=== PATIENT | female | born 1955 | race Caucasian/White ===

== ENCOUNTER 2020-10-15 19:45 | Inpatient (IN) ==
--- NOTE | 2020-10-15 20:40 | DR.URIAD ---
HPI Time Seen Time Seen by Provider: 10/15/20 20:35 PCP Primary Care Physician: CHINYERE HPI Comment HPI Comment: pt's diagnosed with COVID, wants regen-cov but not vaccine Complaint Chief Complaint:: CHEST CONGESTION, WEAKNESS, NO APPETITE, DIARRHEA, H/A. Self Treatment fo Chief Complaint: TYLENOL, IVERMECTIN FROM NEICE Reviewed Nurses Notes Reviewed: Yes Source History Provided: Patient Mode of Arrival Mode of Arrival: Ambulatory Timing Onset of Chief Complaint: 10/06/20 Quality Shortness of Breath: Mild PMH PMH Past Medical History: Yes Past Medical History: COPD and Hypertension Past Surgical History: Yes Surgical History: Hysterectomy Family History History of Family Medical Conditions: Yes Family Medical History: Cancer Social History Does patient currently use any type of tobacco product: No Have you used tobacco products in the last 12 months: No Type of Tobacco Use: None Does any household member use tobacco: No Alcohol Use: None Do you use any recreational Drugs:: No Lives With: Spouse Lives Where: Home Infectious screening In the last 2 months have you had wt loss of >10#?: NO Have you had fever, night sweats or hemotysis?: No Have you traveled outside the country in the last 6 months?: No Isolation: Droplet ROS Review of Systems Constitutional: Chills, Malaise and Fatigue Eyes: No Symptoms Reported ENTM: No Symptoms Reported Respiratoy: Non-Productive Cough and Short of Breath Cardiovascular: No Symptoms Reported Gastrointestinal/Abdominal: See HPI and Diarrhea Genitourinary: No Symptoms Reported Neurological: No Symptoms Reported Musculoskeletal: No Symptoms Reported Integumentary: No Symptoms Reported Hematologic/Lymphatic: No Symptoms Reported Endocrine: No Symptoms Reported Psychiatric: No Symptoms Reported All Other Systems: Reviewed and Negative PE Vital Signs Vitals: Temperature 100.0 F Pulse Rate [Left] 84 Pulse Rate 86 Respiratory Rate 18 Blood Pressure [Left Arm] 130/78 Blood Pressure 125/74 O2 Sat by Pulse Oximetry 80 General Limitations: No Limitations General Appearance: Alert and In No Apparent Distress Head Head Exam: Normal Inspection Eyes Eye exam: Normal Appearance ENT ENT Exam: Normal Exam External Ear Exam: Normal External Inspection TM/Canal Exam: Bilateral: Normal Nose Exam: Normal Nose Exam Nasal Speculum Exam: Bilateral: Normal Mouth Exam: Normal Inspection Throat Exam: Normal Inspection Neck Neck Exam: Normal Inspection Chest Chest Inspection: Normal Inspection Respiratory Respiratory Exam: Normal Lung Sounds Bilat Respiratory Exam: Bilateral: Clear to Auscultation Cardiovascular Cardiovascular Exam: Regular Rate and Normal Rhythm Abdominal Exam Abdominal Exam: Normal Inspection, Normal Bowel Sounds and Soft Extremeties Extremities Exam: Normal Inspection Back Back Exam: Normal Inspection Neurologic Neurological Exam: Alert and Oriented X3 Psychiatric Psychiatric Exam: Normal Affect and Normal Mood Skin Skin Exam: Warm, Dry, Intact and Normal Color MDM Differential Diagnosis Differential Diagnosis: Allergic rhinitis, Influenza A, Influenza B, Influenza:H1N1, Otitis media, Peritonsillar abscess, Diptheria pharyngitis, Streptococcal pharyngitis, Viral pharyngitis, Pneumonia, Sinsusitis and URI COURSE Treatment Treatment: viral vs covid, will do test for protocol work-up for regen-cov Reevaluation 1st: Unchanged (pt has sat of 86 on ABG and PO2 of 50, regen-cov not indicated, will admit, start steriods and remdesivir, will admit to [facility]) [facility] Labs Reviewed Laboratory Results Reviewed?: Yes Result Diagrams: 10/15/20 20:47 10/15/20 20:47 Laboratory: WBC 3.5 X10^3/uL (3.6-10.0) L 10/15/20 20:47 RBC 3.64 X10^6/uL (3.5-5.4) 10/15/20 20:47 Hgb 11.3 g/dL (12.0-16.0) L 10/15/20 20:47 Hct 33.7 % (36.0-47.0) L 10/15/20 20:47 MCV 92.5 fL (80.0-100.0) 10/15/20 20:47 MCH 31.1 pg (27.0-34.0) 10/15/20 20:47 MCHC 33.7 g/dL (33.0-35.0) 10/15/20 20:47 RDW 14.5 % (11.6-16.5) 10/15/20 20:47 Plt Count 125 X10^3/uL (150.0-450.0) L 10/15/20 20:47 MPV 8.1 fL (7.4-11.0) 10/15/20 20:47 Neut % (Auto) 75.6 % (42.0-75.0) H 10/15/20 20:47 Lymph % (Auto) 19.9 % (21.0-51.0) L 10/15/20 20:47 [place] % (Auto) 3.9 % (0.0-13.0) 10/15/20 20:47 Eos % (Auto) 0.2 % (0.9-2.9) L 10/15/20 20:47 Baso % (Auto) 0.4 % (0.2-1.0) 10/15/20 20:47 Neut # (Auto) 2.7 x10^3/uL (2.2-4.8) 10/15/20 20:47 Lymph # (Auto) 0.7 X10^3/uL (1.3-2.9) L 10/15/20 20:47 [place] # (Auto) 0.1 x10^3/uL (0.3-0.8) L 10/15/20 20:47 Eos # (Auto) 0.0 x10^3/uL (0.0-0.2) 10/15/20 20:47 Baso # (Auto) 0.0 X10^3/uL (0.0-0.1) 10/15/20 20:47 Absolute Nucleated RBC 0.2 /100WBC 10/15/20 20:47 D-Dimer 0.59 ug/ml (0.0-0.57) H* 10/15/20 20:47 Sample Site Lb 10/15/20 21:29 ABG pH 7.420 (7.35-7.45) 10/15/20 21:29 ABG pCO2 40.0 mmHg (35.0-45.0) 10/15/20 21:29 ABG pO2 50.0 mmHg (80.0-100.0) L 10/15/20 21:29 ABG HCO3 25.9 mmol/L (22-26) 10/15/20 21:29 ABG O2 Saturation 86.0 % (90-100) L 10/15/20 21:29 ABG Base Excess 1.3 mmol/L (-2.0-2.0) 10/15/20 21:29 Ugo Test N/a 10/15/20 21:29 A-a Gradient Not Reportable 10/15/20 21:29 FiO2 21 10/15/20 21:29 Blood Gas Comments Zia well ae 10/15/20 21:29 Sodium 139 mmol/L (136-145) 10/15/20 20:47 Corrected Sodium TNP 10/15/20 20:47 Potassium 3.3 mmol/L (3.5-5.1) L 10/15/20 20:47 Chloride 101 mmol/L (98-107) 10/15/20 20:47 Carbon Dioxide 27.8 mmol/L (21-32) 10/15/20 20:47 BUN 16 mg/dL (7-18) 10/15/20 20:47 Creatinine 1.30 mg/dL (0.55-1.02) H 10/15/20 20:47 Est GFR (MDRD) Af Amer 53 (>60) L 10/15/20 20:47 Est GFR (MDRD) Non-Af 44 (>60) L 10/15/20 20:47 Glucose 97 mg/dL (65-99) 10/15/20 20:47 Calcium 8.4 mg/dL (8.5-10.1) L 10/15/20 20:47 Corrected Calcium TNP 10/15/20 20:47 Ferritin 330 ng/mL (8-252) H 10/15/20 20:47 Total Bilirubin 0.40 mg/dL (0.2-1.0) 10/15/20 20:47 AST 62 Units/L (15-37) H 10/15/20 20:47 ALT 60 Units/L (12-78) 10/15/20 20:47 Alkaline Phosphatase 62 Units/L (46-116) 10/15/20 20:47 C-Reactive Protein 53.60 mg/L (0-3.0) H 10/15/20 20:47 B-Natriuretic Peptide 13.0 pg/mL (0-79) 10/15/20 20:47 Total Protein 7.1 g/dL (6.4-8.2) 10/15/20 20:47 Albumin 3.7 g/dL (3.4-5.0) 10/15/20 20:47 Globulin 3.4 g/dL (2.5-4.5) 10/15/20 20:47 Albumin/Globulin Ratio 1.1 Ratio (1.1-2.1) 10/15/20 20:47 SARS CoV-2 RNA Rapid KRISTIE Positive (NEGATIVE) A 10/15/20 20:40 XRAY XRAY Interpreted by: Radiologist X-ray Results: MPRESSION COPD and hazy opacities within the peripheral mid and lower right lung, which are concerning for early developing pneumonia. Atypical pneumonia including viral etiologies not excluded. Clinical correlation continued PA/lateral radiographic follow-up recommended. Opioid Opioid Risk Tool Total: 0 Total Score Risk Category: Low Risk Copyright: Jd JOHNSON predicting aberrant behaviors Diagnosis Discharge Problem: COPD (chronic obstructive pulmonary disease) with acute bronchitis, COVID-19, Hypoxia Instructions Instructions: Chronic Obstructive Pulmonary Disease Viral Illness, Adult
[2020-10-15 21:21] LABS: BASOPHILS % (AUTO) 0.4 % (0.2-1.0); EOSINOPHILS % (AUTO) 0.2 % (0.9-2.9); HEMATOCRIT 33.7 % (36.0-47.0); HEMOGLOBIN 11.3 g/dL (12.0-16.0); LYMPHOCYTES # (AUTO) 0.7 X10^3/uL (1.3-2.9); LYMPHOCYTES % (AUTO) 19.9 % (21.0-51.0); MEAN CORPUSCULAR HEMOGLOBIN 31.1 pg (27.0-34.0); MEAN CORPUSCULAR HGB CONC 33.7 g/dL (33.0-35.0); MEAN CORPUSCULAR VOLUME 92.5 fL (80.0-100.0); MEAN PLATELET VOLUME 8.1 fL (7.4-11.0); MONOCYTES # (AUTO) 0.1 x10^3/uL (0.3-0.8); MONOCYTES % (AUTO) 3.9 % (0.0-13.0); NEUTROPHILS # (AUTO) 2.7 x10^3/uL (2.2-4.8); NEUTROPHILS % (AUTO) 75.6 % (42.0-75.0); PLATELET COUNT 125 X10^3/uL (150.0-450.0); RED BLOOD COUNT 3.64 X10^6/uL (3.5-5.4); RED CELL DISTRIBUTION WIDTH 14.5 % (11.6-16.5); WHITE BLOOD COUNT 3.5 X10^3/uL (3.6-10.0)
[2020-10-15 21:23] LABS: ALANINE AMINOTRANSFERASE 60 Units/L (12-78); ALBUMIN 3.7 g/dL (3.4-5.0); ALKALINE PHOSPHATASE 62 Units/L (46-116); ASPARTATE AMINO TRANSFERASE 62 Units/L (15-37); BLOOD UREA NITROGEN 16 mg/dL (7-18); CALCIUM 8.4 mg/dL (8.5-10.1); CARBON DIOXIDE 27.8 mmol/L (21-32); CHLORIDE 101 mmol/L (98-107); SODIUM 139 mmol/L (136-145); TOTAL PROTEIN 7.1 g/dL (6.4-8.2); eGFR NON BLACK RACES 44 (>60)
[2020-10-15 21:34] LABS: ABG BASE EXCESS 1.3 mmol/L (-2.0-2.0); ABG HCO3 25.9 mmol/L (22-26)
[2020-10-15] MEDS ORDERED: NS 1000 ML 1,000 ML IV ONE (21:47)
[2020-10-15] MEDS ORDERED: DECADRON INJ IVP ONE (21:47)
--- NOTE | 2020-10-15 21:48 | RAD ---
HISTORYCHEST CONGESTION, WEAKNESS, NO APPETITE, DIARRHEA, H/A. COPD, HTN, HYSTSTUDYCHEST, 1 VIEWCOMPARISONNoneFINDINGSCardiac silhouette is normal in size. Lungs are hyperinflated with flattening of the hemidiaphragms and coarsened interstitial markings, compatible with COPD. There are hazy opacities within the peripheral mid and lower right lung. There is no significant pleural effusion or pneumothorax.IMPRESSIONCOPD and hazy opacities within the peripheral mid and lower right lung, which are concerning for early developing pneumonia. Atypical pneumonia including viral etiologies not excluded. Clinical correlation continued PA/lateral radiographic follow-up recommended.Electronically signed by: RADHA RALPH (Oct 15, 2020 21:46:34)
[2020-10-15] MEDS ORDERED: REMDESIVIR 200 MG in NS 100 ML IV 140 ML IV ONE (21:51)
[2020-10-15] MEDS ORDERED: DECADRON INJ ONE (21:57)
[2020-10-15] MEDS ORDERED: REMDESIVIR IV ONE (21:58)
[2020-10-15] MEDS ORDERED: NS 100 ML IV 100 ML ONE (21:59)
[2020-10-15] MEDS ORDERED: NS 1000 ML 1,000 ML ONE (21:59)
[2020-10-15] MEDS ORDERED: ZOFRAN INJ 4 MG VIAL ONE (23:59)
[2020-10-16 00:01] LABS: BILIRUBIN,URINE NEGATIVE (NEGATIVE); BLOOD/HEMOGLOBIN,URINE NEGATIVE (NEGATIVE); GLUCOSE, URINE NEGATIVE (NEGATIVE); KETONES,URINE 1+ (NEGATIVE); LEUKOCYTE ESTERASE ,URINE NEGATIVE (NEGATIVE); NITRITES,URINE NEGATIVE (NEGATIVE); PROTEIN,URINE NEGATIVE (NEGATIVE); UROBILINOGEN,URINE NORMAL (NORMAL)
[2020-10-16 00:02] LABS: APPEARANCE,URINE CLEAR (CLEAR); COLOR,URINE STRAW (YELLOW)
[2020-10-16] MEDS ORDERED: ZOFRAN INJ 4 MG VIAL IVP ONE (00:03)
[2020-10-16] MEDS ORDERED: MAGIC MOUTHWASH MT PRN (02:14)
[2020-10-16] MEDS ORDERED: ACTEMRA IV ONE (02:14)
[2020-10-16] MEDS ORDERED: TUSSIONEX PENNKINETIC SUSP PO PRN (02:14)
[2020-10-16] MEDS ORDERED: PHARMACY CONSULT - IVERMECTIN XX SCH (02:14)
[2020-10-16] MEDS ORDERED: HumuLIN R SUBCUT PRN (02:14)
[2020-10-16] MEDS ORDERED: NS 50 ML IV 50 ML IV ONE ×3 (02:26→15:50)
[2020-10-16] MEDS: ASCORBIC ACID INJ MULTI-DOSE VIAL 1,500 MG in NS 50 ML IV 50 ML IV SCH ×4 (02:33→21:46)
[2020-10-16] MEDS ORDERED: FORTAZ or TAZICEF VIAL INJ ONE ×2 (02:37→18:37)
[2020-10-16] MEDS ORDERED: TESSALON PERLES PO ONE ×4 (02:37→20:31)
[2020-10-16] MEDS: TESSALON PERLES PO SCH ×4 (02:55→21:46)
[2020-10-16] MEDS ORDERED: SOLU-Medrol 125 MG VIAL ONE ×3 (02:57→16:52)
[2020-10-16] MEDS ORDERED: FORTAZ or TAZICEF VIAL INJ IV SCH (03:00)
[2020-10-16] MEDS ORDERED: SOLU-Medrol 125 MG VIAL IVP SCH (03:00)
[2020-10-16] MEDS ORDERED: NS 1/2 1000 ML IV 1,000 ML IV ONE (03:08)
[2020-10-16] MEDS: NS 1/2 1000 ML IV 1,000 ML IV SCH ×4 (03:13→15:54)
[2020-10-16] MEDS ORDERED: ZOFRAN INJ 4 MG VIAL IVP PRN (03:40)
[2020-10-16 03:45] LABS: BASOPHILS % (AUTO) 0.2 % (0.2-1.0); HEMATOCRIT 31.1 % (36.0-47.0); HEMOGLOBIN 10.5 g/dL (12.0-16.0); LYMPHOCYTES # (AUTO) 0.4 X10^3/uL (1.3-2.9); LYMPHOCYTES % (AUTO) 13.6 % (21.0-51.0); MEAN CORPUSCULAR HEMOGLOBIN 31.3 pg (27.0-34.0); MEAN CORPUSCULAR HGB CONC 33.6 g/dL (33.0-35.0); MEAN CORPUSCULAR VOLUME 93.1 fL (80.0-100.0); MEAN PLATELET VOLUME 8.2 fL (7.4-11.0); MONOCYTES # (AUTO) 0.1 x10^3/uL (0.3-0.8); MONOCYTES % (AUTO) 2.5 % (0.0-13.0); NEUTROPHILS # (AUTO) 2.4 x10^3/uL (2.2-4.8); NEUTROPHILS % (AUTO) 83.7 % (42.0-75.0); PLATELET COUNT 108 X10^3/uL (150.0-450.0); RED BLOOD COUNT 3.34 X10^6/uL (3.5-5.4); RED CELL DISTRIBUTION WIDTH 14.9 % (11.6-16.5); WHITE BLOOD COUNT 2.9 X10^3/uL (3.6-10.0)
[2020-10-16 03:59] LABS: ALANINE AMINOTRANSFERASE 54 Units/L (12-78); ALBUMIN 3.3 g/dL (3.4-5.0); ALKALINE PHOSPHATASE 54 Units/L (46-116); ASPARTATE AMINO TRANSFERASE 56 Units/L (15-37); BLOOD UREA NITROGEN 11 mg/dL (7-18); CALCIUM 7.8 mg/dL (8.5-10.1); CARBON DIOXIDE 27.4 mmol/L (21-32); CHLORIDE 106 mmol/L (98-107); COR CA(FOR HYPOALB) 8.4 mg/dL (8.5-10.1); COR NA(FOR HYPERGLY) 143 mmol/L (136-145); CREATININE 1.01 mg/dL (0.55-1.02); SODIUM 142 mmol/L (136-145); eGFR NON BLACK RACES 58 (>60)
[2020-10-16 04:11] LABS: CKMB % 0.7 % (<4); CREATINE KINASE 211 Units/L (26-192); CREATINE KINASE MB 1.4 ng/mL (0-4.0); TROPONIN I < 0.02 ng/mL (0-1.5)
[2020-10-16] MEDS ORDERED: LEVAQUIN PREMIX IV 500 MG 500 MG/100 ML BAG IV SCH (06:00)
[2020-10-16] MEDS ORDERED: ZOFRAN INJ 4 MG VIAL ONE (06:04)
[2020-10-16] MEDS ORDERED: LEVAQUIN PREMIX IV 500 MG 500 MG/100 ML BAG IV ONE (06:40)
[2020-10-16] MEDS ORDERED: THIAMINE HCL INJ ONE (08:08)
[2020-10-16] MEDS ORDERED: DIFLUCAN ONE (08:08)
[2020-10-16] MEDS ORDERED: ZyrTEC TAB 10 MG ONE (08:08)
[2020-10-16] MEDS ORDERED: VITAMIN D3 125 mcg (5,000 UNITS) ONE (08:09)
[2020-10-16] MEDS ORDERED: LOVENOX INJ 30 MG SYR SC ONE ×2 (08:09→20:31)
[2020-10-16] MEDS ORDERED: ZINC SULFATE ONE (08:09)
[2020-10-16] MEDS ORDERED: PROTONIX INJ 40 MG VIAL ONE (08:09)
[2020-10-16] MEDS ORDERED: PEPCID 20 MG IV PREMIX* 20 MG/50 ML BAG IV ONE (08:10)
[2020-10-16] MEDS ORDERED: MILK OF MAGNESIA ONE ×2 (08:10→20:31)
[2020-10-16] MEDS: SOLU-Medrol 125 MG VIAL IVP SCH (08:58)
[2020-10-16] MEDS ORDERED: THIAMINE HCL INJ IVP SCH (09:00)
[2020-10-16] MEDS ORDERED: THEO-DUR TAB 300 MG 12-HR PO SCH (09:00)
[2020-10-16] MEDS ORDERED: XOPENEX 1.25 MG/3 ML NEBULE NEB SCH (09:00)
[2020-10-16] MEDS ORDERED: IVERMECTIN PO SCH (09:00)
[2020-10-16] MEDS ORDERED: PROTONIX INJ 40 MG VIAL IVP SCH (09:00)
[2020-10-16] MEDS ORDERED: DIFLUCAN PO SCH (09:00)
[2020-10-16] MEDS: LOVENOX INJ 30 MG SYR SC SCH ×2 (09:01→21:47)
[2020-10-16] MEDS: MILK OF MAGNESIA PO SCH ×2 (09:02→21:47)
[2020-10-16] MEDS: PEPCID 20 MG IV PREMIX* 20 MG/50 ML BAG IV SCH (09:04)
[2020-10-16] MEDS: VITAMIN D3 125 mcg (5,000 UNITS) PO SCH (09:05)
[2020-10-16] MEDS: ZINC SULFATE PO SCH (09:05)
[2020-10-16] MEDS: ZyrTEC TAB 10 MG PO SCH (09:06)
[2020-10-16] MEDS: ACCUNEB 1.25 MG NEBULE NEB SCH ×4 (09:07→20:33)
[2020-10-16] MEDS: MUCOMYST 20% 200 MG/ML NEB SCH ×4 (09:07→20:33)
[2020-10-16] MEDS: PULMICORT NEB TX 0.5 MG NEB SCH ×2 (09:07→20:33)
[2020-10-16 09:49] VITALS: BMI 33.0
--- NOTE | 2020-10-16 17:32 | DR.H&P ---
H&P History & Physical for Day of: H&P Date: 10/16/20 Chief Complaint Chief Complaint: weakness, SOB Allergies Allergies Allergy/AdvReac Type Severity Reaction Status Date / Time No Known Drug Allergies Allergy Verified 10/15/20 20:14 History of Present Illness History of Present Illness: Ms Morocho is a 65y/o female with a PMH of COPD, HTN and hypothyroidism presented with worsening dyspnea and weakness. She has been feeling sick for the past few days. Her has also been sick and tested positive for covid-19. She denies fever or chills. Patient is currently on 3L NC and does not appear to be in respiratory distress. ER work up Labs: WBC 2.9 Hgb 10.5 Plt 108 BUN/Cr: 11/1.01 Glucose 130 D-dimer 0.60 CRP 53 Trop (-) AB.41/40/50/25 sats 86% COVID-19 (+) CXR: suggestive of atypical pna Patient was started on covid-19 protocol. Plan: Continue COVID-19 protocol. Continue IV Remdesivir, Fortaz/Levaquin and Solumedrol. Wean O2 as tolerated to keep sats>92%. Will order CTA due to elevated d-dimer. Continue nebs and pulmicort. Resume home medications. Continue gentle hydration. Continue vitamin support and lovenox. Monitor AM labs/imaging. Time spent for clinical assessment, reviewing labs/imaging, physical exam, decision making and documentation greater than 45 mins. Past Medical History Past Medical History: COPD, Hypertension and Hypothyroidism Past Surgical History Surgical History: Hysterectomy and Other Family History Family Medical History: Cancer Social History Does patient currently use any type of tobacco product: No Have you used tobacco products in the last 12 months: No Type of Tobacco Use: None Does any household member use tobacco: No Alcohol Use: None Prescription drug monitoring program results: PDMP reviewed and no concerns identified Medications Home Medications: No Known Drug Allergies Allergy (Verified 10/15/20 20:14) Labs Result Diagrams: 10/16/20 03:05 10/16/20 03:05 Labs: Laboratory WBC 2.9 X10^3/uL (3.6-10.0) L 10/16/20 03:05 RBC 3.34 X10^6/uL (3.5-5.4) L 10/16/20 03:05 Hgb 10.5 g/dL (12.0-16.0) L 10/16/20 03:05 Hct 31.1 % (36.0-47.0) L 10/16/20 03:05 MCV 93.1 fL (80.0-100.0) 10/16/20 03:05 MCH 31.3 pg (27.0-34.0) 10/16/20 03:05 MCHC 33.6 g/dL (33.0-35.0) 10/16/20 03:05 RDW 14.9 % (11.6-16.5) 10/16/20 03:05 Plt Count 108 X10^3/uL (150.0-450.0) L 10/16/20 03:05 MPV 8.2 fL (7.4-11.0) 10/16/20 03:05 Neut % (Auto) 83.7 % (42.0-75.0) H 10/16/20 03:05 Lymph % (Auto) 13.6 % (21.0-51.0) L 10/16/20 03:05 [place] % (Auto) 2.5 % (0.0-13.0) 10/16/20 03:05 Eos % (Auto) 0.0 % (0.9-2.9) L 10/16/20 03:05 Baso % (Auto) 0.2 % (0.2-1.0) 10/16/20 03:05 Neut # (Auto) 2.4 x10^3/uL (2.2-4.8) 10/16/20 03:05 Lymph # (Auto) 0.4 X10^3/uL (1.3-2.9) L 10/16/20 03:05 [place] # (Auto) 0.1 x10^3/uL (0.3-0.8) L 10/16/20 03:05 Eos # (Auto) 0.0 x10^3/uL (0.0-0.2) 10/16/20 03:05 Baso # (Auto) 0.0 X10^3/uL (0.0-0.1) 10/16/20 03:05 Absolute Nucleated RBC 0.0 /100WBC 10/16/20 03:05 D-Dimer 0.67 ug/ml (0.0-0.57) H* 10/16/20 03:05 Sample Site Lb 10/15/20 21:29 ABG pH 7.420 (7.35-7.45) 10/15/20 21: ABG pCO2 40.0 mmHg (35.0-45.0) 10/15/20 21: ABG pO2 50.0 mmHg (80.0-100.0) L 10/15/20 21: ABG HCO3 25.9 mmol/L (22-26) 10/15/20 21: ABG O2 Saturation 86.0 % (90-100) L 10/15/20: ABG Base Excess 1.3 mmol/L (-2.0-2.0) 10/15/20 21: Ugo Test N/a 10/15/20 21: A-a Gradient Not Reportable 10/15/20 21:29 FiO2 21 10/15/20 21:29 Blood Gas Comments Zia well ae 10/15/20 21:29 Sodium 142 mmol/L (136-145) 10/16/20 03:05 Corrected Sodium 143 mmol/L (136-145) 10/16/20 03:05 Potassium 3.7 mmol/L (3.5-5.1) 10/16/20 03:05 Chloride 106 mmol/L (98-107) 10/16/20 03:05 Carbon Dioxide 27.4 mmol/L (21-32) 10/16/20 03:05 BUN 11 mg/dL (7-18) 10/16/20 03:05 Creatinine 1.01 mg/dL (0.55-1.02) 10/16/20 03:05 Est GFR (MDRD) Af Amer > 60 (>60) 10/16/20 03:05 Est GFR (MDRD) Non-Af 58 (>60) L 10/16/20 03:05 Glucose 130 mg/dL (65-99) H 10/16/20 03:05 Calcium 7.8 mg/dL (8.5-10.1) L 10/16/20 03:05 Corrected Calcium 8.4 mg/dL (8.5-10.1) L 10/16/20 03:05 Ferritin 330 ng/mL (8-252) H 10/15/20 20:47 Total Bilirubin 0.30 mg/dL (0.2-1.0) 10/16/20 03:05 AST 56 Units/L (15-37) H 10/16/20 03:05 ALT 54 Units/L (12-78) 10/16/20 03:05 Alkaline Phosphatase 54 Units/L (46-116) 10/16/20 03:05 Creatine Kinase 211 Units/L (26-192) H 10/16/20 03:05 CK-MB (CK-2) 1.4 ng/mL (0-4.0) 10/16/20 03:05 CK/CKMB % Calc 0.7 % (<4) 10/16/20 03:05 Troponin I < 0.02 ng/mL (0-1.5) 10/16/20 03:05 C-Reactive Protein 53.60 mg/L (0-3.0) H 10/15/20 20:47 B-Natriuretic Peptide 13.0 pg/mL (0-79) 10/15/20 20:47 Total Protein 6.0 g/dL (6.4-8.2) L 10/16/20 03:05 Albumin 3.3 g/dL (3.4-5.0) L 10/16/20 03:05 Globulin 2.7 g/dL (2.5-4.5) 10/16/20 03:05 Albumin/Globulin Ratio 1.2 Ratio (1.1-2.1) 10/16/20 03:05 Specimen Type Clean catch urine 10/15/20 23:45 Urine Color Straw (YELLOW) 10/15/20 23:45 Urine Appearance Clear (CLEAR) 10/15/20 23:45 Urine pH 6.0 (5.0 - 8.0) 10/15/20 23:45 Ur Specific [place] 1.010 (1.000-1.030) 10/15/20 23:45 Urine Protein Negative (NEGATIVE) 10/15/20 23:45 Urine Glucose (UA) Negative (NEGATIVE) 10/15/20 23:45 Urine Ketones 1+ (NEGATIVE) 10/15/20 23:45 Urine Occult Blood Negative (NEGATIVE) 10/15/20 23:45 Urine Nitrite Negative (NEGATIVE) 10/15/20 23:45 Urine Bilirubin Negative (NEGATIVE) 10/15/20 23:45 Urine Urobilinogen Normal (NORMAL) 10/15/20 23:45 Ur Leukocyte Esterase Negative (NEGATIVE) 10/15/20 23:45 SARS CoV-2 RNA Rapid KRISTIE Positive (NEGATIVE) A 10/15/20 20:40 Review of Systems Constitutional: Weakness and Malaise Eyes: No Symptoms Reported ENT: No Symptoms Reported Respiratory: Shortness of Breath and SOB with Excertion Cardiovascular: No Symptoms Reported Gastrointestinal: No Symptoms Reported Genitourinary: No Symptoms Reported Musculoskeletal: No Symptoms Reported Skin: No Symptoms Reported Neurological: No Symptoms Reported Physical Exam Vital Signs: Temperature 97.9 F Pulse Rate [Left] 72 Pulse Rate 68 Respiratory Rate 17 Blood Pressure [Left Arm] 106/60 Blood Pressure 125/74 O2 Sat by Pulse Oximetry 97 Oriented: Normal Eyes: Normal Ear: Normal Nose: Normal Throat: Dry Respiratory: Diminished Throughout Cardiovascular: Normal Auscultation: Bowel Sounds: Normal Palpation: Normal Tenderness: Normal Skin: Decreased [place]urgur Musculoskeletal: Normal Psychiatric: Normal Mood Description: Calm Affect: Normal Speech Pattern: Clear Assessment/Plan (1) Pneumonia due to COVID-19 virus: Status: Acute (2) COPD (chronic obstructive pulmonary disease) with acute bronchitis: Status: Acute (3) COVID-19: Status: Acute (4) Hypoxia: Status: Acute (5) HTN (hypertension): Qualifiers: Hypertension type: primary hypertension Qualified Code(s): I10 - Essential (primary) hypertension Status: Acute (6) Hypothyroidism: Qualifiers: Hypothyroidism type: unspecified Qualified Code(s): E03.9 - Hypothyroidism, unspecified Status: Acute Review H&P Reviewed: Yes Patient was examined?: Yes
[2020-10-16] MEDS ORDERED: NS 100 ML IV 100 ML ONE ×2 (17:41→20:32)
[2020-10-16] MEDS ORDERED: NS 50 ML IV + SPIKE MINIBAG* 50 ML IV ONE (18:37)
[2020-10-16] MEDS: FORTAZ or TAZICEF VIAL INJ IV SCH (18:46)
--- NOTE | 2020-10-16 19:16 | CT ---
CTA CHESTCLINICAL INDICATION: COVID PNEUMONIA, ELEVATED D-DIMERPROCEDURE: Non gated axial images of the chest were obtained with intravenous contrast according to pulmonary embolism protocol. MIPS were reconstructed Dose reduction techniques including Automated Exposure Control (AEC) and adjustment of mA and kV were utlized.COMPARISON:NoneFINDINGS:No evidence of a pulmonary embolism to the level of the segmental pulmonary arteries.The heart is normal in size . No pericardial effusion. There are prominent right hilar and mediastinal lymph nodes. Largest being a sub carinal node measuring 2.8 cm on series 4, image 75 and a right hilar node measuring 2.1 cm on series 4, image 72. Severe coronary calcification.. There is a consolidation involving the right lower lobe as well as the dependent portion of the right upper lobe. Moderate emphysema..Airways are patent . No suspicious pulmonary nodules or masses .Limited images of the upper abdomen are unremarkable.No aggressive osseous lesions.IMPRESSION:1. No evidence of pulmonary embolism.2. Findings of probable pneumonia involving the right lung. Hilar and mediastinal lymph nodes are likely reactive.Electronically signed by: TEJAL SINGER (Oct 16, 2020 19:14:18)
[2020-10-16] MEDS ORDERED: PULMICORT NEB TX 0.5 MG NEB ONE (19:20)
[2020-10-16] MEDS ORDERED: SNACK - Diabetic Appropriate PO SCH (20:00)
[2020-10-16] MEDS ORDERED: MELATONIN ONE (20:30)
[2020-10-16] MEDS ORDERED: REMDESIVIR IV ONE (20:31)
[2020-10-16] MEDS ORDERED: LIPITOR TAB 80 MG ONE (20:31)
[2020-10-16] MEDS ORDERED: NS 250 ML IV 250 ML IV ONE (20:32)
[2020-10-16] MEDS ORDERED: MELATONIN PO SCH (21:00)
[2020-10-16] MEDS ORDERED: SINGULAIR TAB 10 MG PO SCH (21:00)
[2020-10-16] MEDS ORDERED: LIPITOR TAB 80 MG PO SCH (21:00)
[2020-10-16] MEDS ORDERED: REMDESIVIR 100 MG in NS 250 ML IV 250 ML IV SCH (21:00)
[2020-10-17] MEDS ORDERED: TYLENOL 325 MG TAB PO PRN (00:56)
[2020-10-17] MEDS ORDERED: TYLENOL 325 MG TAB PO ONE (00:59)
[2020-10-17] MEDS ORDERED: SOLU-Medrol 125 MG VIAL ONE (01:36)
[2020-10-17] MEDS: SOLU-Medrol 125 MG VIAL IVP SCH ×2 (01:38→10:10)
[2020-10-17] MEDS ORDERED: NS 100 ML IV 100 ML ONE (03:00)
[2020-10-17] MEDS: ASCORBIC ACID INJ MULTI-DOSE VIAL 1,500 MG in NS 50 ML IV 50 ML IV SCH ×2 (03:07→10:14)
[2020-10-17] MEDS ORDERED: TESSALON PERLES PO ONE (05:48)
[2020-10-17] MEDS ORDERED: FORTAZ or TAZICEF VIAL INJ ONE (05:48)
[2020-10-17] MEDS: FORTAZ or TAZICEF VIAL INJ IV SCH (06:00)
[2020-10-17] MEDS: TESSALON PERLES PO SCH (06:00)
[2020-10-17 06:57] LABS: BASOPHILS % (AUTO) 0.1 % (0.2-1.0); HEMATOCRIT 31.6 % (36.0-47.0); HEMOGLOBIN 10.7 g/dL (12.0-16.0); LYMPHOCYTES # (AUTO) 0.8 X10^3/uL (1.3-2.9); LYMPHOCYTES % (AUTO) 12.4 % (21.0-51.0); MEAN CORPUSCULAR HEMOGLOBIN 31.6 pg (27.0-34.0); MEAN CORPUSCULAR HGB CONC 33.9 g/dL (33.0-35.0); MEAN CORPUSCULAR VOLUME 93.5 fL (80.0-100.0); MEAN PLATELET VOLUME 8.3 fL (7.4-11.0); MONOCYTES # (AUTO) 0.2 x10^3/uL (0.3-0.8); MONOCYTES % (AUTO) 3.8 % (0.0-13.0); NEUTROPHILS # (AUTO) 5.4 x10^3/uL (2.2-4.8); NEUTROPHILS % (AUTO) 83.7 % (42.0-75.0); PLATELET COUNT 132 X10^3/uL (150.0-450.0); RED BLOOD COUNT 3.38 X10^6/uL (3.5-5.4); RED CELL DISTRIBUTION WIDTH 15.1 % (11.6-16.5); WHITE BLOOD COUNT 6.5 X10^3/uL (3.6-10.0)
[2020-10-17 06:58] LABS: BLOOD UREA NITROGEN 11 mg/dL (7-18); CALCIUM 7.9 mg/dL (8.5-10.1); CARBON DIOXIDE 28.4 mmol/L (21-32); CHLORIDE 106 mmol/L (98-107); COR NA(FOR HYPERGLY) 142 mmol/L (136-145); CREATININE 0.83 mg/dL (0.55-1.02); SODIUM 141 mmol/L (136-145); eGFR NON BLACK RACES > 60 (>60)
[2020-10-17] MEDS ORDERED: LEVAQUIN PREMIX IV 250 MG 250 MG/50 ML BAG IV ONE (08:25)
[2020-10-17] MEDS ORDERED: MILK OF MAGNESIA ONE (08:25)
[2020-10-17] MEDS ORDERED: LOVENOX INJ 30 MG SYR SC ONE (08:25)
[2020-10-17] MEDS ORDERED: PEPCID 20 MG IV PREMIX* 20 MG/50 ML BAG IV ONE (08:26)
[2020-10-17] MEDS ORDERED: NS 50 ML IV 50 ML IV ONE (08:26)
[2020-10-17] MEDS ORDERED: ASCORBIC ACID INJ MULTI-DOSE VIAL IV ONE (08:26)
[2020-10-17] MEDS ORDERED: ZINC SULFATE ONE (08:29)
[2020-10-17] MEDS ORDERED: VITAMIN D3 125 mcg (5,000 UNITS) ONE (08:29)
[2020-10-17] MEDS ORDERED: ZyrTEC TAB 10 MG ONE (08:29)
[2020-10-17] MEDS ORDERED: LEVAQUIN PREMIX IV 250 MG 250 MG/50 ML BAG IV SCH (09:00)
[2020-10-17] MEDS: MUCOMYST 20% 200 MG/ML NEB SCH ×2 (10:00→14:20)
[2020-10-17] MEDS: ACCUNEB 1.25 MG NEBULE NEB SCH ×2 (10:00→14:20)
[2020-10-17] MEDS: PULMICORT NEB TX 0.5 MG NEB SCH (10:00)
[2020-10-17] MEDS ORDERED: ZOFRAN TAB 4 MG SL PRN (10:01)
[2020-10-17] MEDS ORDERED: ZOFRAN TAB 4 MG ONE (10:03)
[2020-10-17] MEDS: NS 1/2 1000 ML IV 1,000 ML IV SCH (10:11)
[2020-10-17] MEDS: ZyrTEC TAB 10 MG PO SCH (10:12)
[2020-10-17] MEDS: LOVENOX INJ 30 MG SYR SC SCH (10:15)
[2020-10-17] MEDS: PEPCID 20 MG IV PREMIX* 20 MG/50 ML BAG IV SCH (10:16)
[2020-10-17] MEDS: MILK OF MAGNESIA PO SCH (10:17)
[2020-10-17] MEDS: ZINC SULFATE PO SCH (10:17)
[2020-10-17] MEDS: VITAMIN D3 125 mcg (5,000 UNITS) PO SCH (10:18)
[2020-10-17 12:24] VITALS: BP 116/56
--- NOTE | 2020-10-17 13:28 | W.DIS.FURT ---
Summary of Discharge Admission Diagnosis Patient Problems (Updated 10/16/20 @ 17:44 by Kavita Dejesus) COPD (chronic obstructive pulmonary disease) with acute bronchitis (Acute) J44.0, J20.9 COVID-19 (Acute) U07.1 Hypoxia (Acute) R09.02 Vital Signs: Vital Signs (72 hours) 10/15/20 19:56 10/15/20 21:03 10/15/20 21:53 Temperature 98.8 F 100.0 F H Pulse Rate 86 Pulse Rate [Left] 80 84 Respiratory Rate 16 18 18 Blood Pressure 125/74 Blood Pressure [Left Arm] 130/78 O2 Sat by Pulse Oximetry 92 L 80 L 10/16/20 00:05 10/16/20 02:54 10/16/20 04:00 Temperature 98.2 F 98.4 F Pulse Rate 78 Pulse Rate [Left] 74 70 Respiratory Rate 18 18 Blood Pressure Blood Pressure [Left Arm] 138/78 123/59 O2 Sat by Pulse Oximetry 97 96 94 L 10/16/20 08:00 10/16/20 09:07 10/16/20 12:00 Temperature 98.0 F 97.9 F Pulse Rate 68 Pulse Rate [Left] 70 72 Respiratory Rate 16 17 Blood Pressure Blood Pressure [Left Arm] 121/78 106/60 O2 Sat by Pulse Oximetry 96 98 97 10/16/20 16:00 10/16/20 20:00 10/16/20 20:34 Temperature 98.0 F 98.3 F Pulse Rate 69 Pulse Rate [Left] 70 73 Respiratory Rate 16 16 Blood Pressure Blood Pressure [Left Arm] 122/65 107/58 O2 Sat by Pulse Oximetry 96 97 94 L 10/17/20 00:00 10/17/20 00:15 10/17/20 00:30 Temperature 98.1 F Pulse Rate 71 80 77 Pulse Rate [Left] 71 Respiratory Rate 15 22 24 Blood Pressure 106/58 Blood Pressure [Left Arm] 106/58 O2 Sat by Pulse Oximetry 87 L 86 L 10/17/20 00:45 10/17/20 01:00 10/17/20 01:03 Temperature Pulse Rate 72 71 Pulse Rate [Left] Respiratory Rate 15 15 18 Blood Pressure 121/69 Blood Pressure [Left Arm] O2 Sat by Pulse Oximetry 91 L 10/17/20 01:15 10/17/20 01:30 10/17/20 01:45 Temperature Pulse Rate 69 68 67 Pulse Rate [Left] Respiratory Rate 16 15 16 Blood Pressure Blood Pressure [Left Arm] O2 Sat by Pulse Oximetry 92 L 92 L 93 L 10/17/20 02:00 10/17/20 02:01 10/17/20 02:03 Temperature Pulse Rate 66 66 Pulse Rate [Left] Respiratory Rate 15 16 20 Blood Pressure 74/45 Blood Pressure [Left Arm] O2 Sat by Pulse Oximetry 93 L 93 L 10/17/20 02:06 10/17/20 02:07 10/17/20 02:09 Temperature Pulse Rate 66 70 70 Pulse Rate [Left] Respiratory Rate 15 17 24 Blood Pressure 77/47 81/50 101/67 Blood Pressure [Left Arm] O2 Sat by Pulse Oximetry 93 L 94 L 94 L 10/17/20 02:15 10/17/20 02:30 10/17/20 02:45 Temperature Pulse Rate 64 64 63 Pulse Rate [Left] Respiratory Rate 15 14 14 Blood Pressure Blood Pressure [Left Arm] O2 Sat by Pulse Oximetry 92 L 93 L 92 L 10/17/20 03:00 10/17/20 03:15 10/17/20 03:20 Temperature Pulse Rate 61 63 63 Pulse Rate [Left] Respiratory Rate 14 12 17 Blood Pressure 97/52 Blood Pressure [Left Arm] O2 Sat by Pulse Oximetry 92 L 93 L 92 L 10/17/20 03:30 10/17/20 03:45 10/17/20 04:00 Temperature 98.1 F Pulse Rate 62 59 L 60 Pulse Rate [Left] 60 Respiratory Rate 14 14 16 Blood Pressure 102/52 Blood Pressure [Left Arm] 102/52 O2 Sat by Pulse Oximetry 94 L 95 95 10/17/20 04:15 10/17/20 04:30 10/17/20 04:45 Temperature Pulse Rate 60 59 L 58 L Pulse Rate [Left] Respiratory Rate 14 14 13 Blood Pressure Blood Pressure [Left Arm] O2 Sat by Pulse Oximetry 94 L 93 L 92 L 10/17/20 05:00 10/17/20 05:15 10/17/20 05:30 Temperature Pulse Rate 58 L 59 L 58 L Pulse Rate [Left] Respiratory Rate 14 15 14 Blood Pressure Blood Pressure [Left Arm] O2 Sat by Pulse Oximetry 92 L 92 L 91 L 10/17/20 05:45 10/17/20 06:00 10/17/20 06:15 Temperature Pulse Rate 63 63 61 Pulse Rate [Left] Respiratory Rate 14 20 14 Blood Pressure Blood Pressure [Left Arm] O2 Sat by Pulse Oximetry 94 L 97 95 10/17/20 06:30 10/17/20 06:45 10/17/20 07:00 Temperature Pulse Rate 62 63 60 Pulse Rate [Left] Respiratory Rate 14 16 22 Blood Pressure Blood Pressure [Left Arm] O2 Sat by Pulse Oximetry 94 L 95 94 L 10/17/20 07:15 10/17/20 07:22 10/17/20 07:23 Temperature Pulse Rate 61 68 Pulse Rate [Left] Respiratory Rate 15 18 Blood Pressure 107/57 107/57 Blood Pressure [Left Arm] O2 Sat by Pulse Oximetry 95 93 L 10/17/20 07:24 10/17/20 07:30 10/17/20 07:45 Temperature 98.6 F Pulse Rate 66 62 67 Pulse Rate [Left] Respiratory Rate 13 15 16 Blood Pressure 103/57 Blood Pressure [Left Arm] O2 Sat by Pulse Oximetry 93 L 92 L 93 L 10/17/20 08:00 10/17/20 08:15 10/17/20 08:30 Temperature Pulse Rate 61 61 62 Pulse Rate [Left] Respiratory Rate 15 14 15 Blood Pressure Blood Pressure [Left Arm] O2 Sat by Pulse Oximetry 93 L 94 L 94 L 10/17/20 08:45 10/17/20 09:00 10/17/20 09:15 Temperature Pulse Rate 73 63 65 Pulse Rate [Left] Respiratory Rate 15 15 15 Blood Pressure Blood Pressure [Left Arm] O2 Sat by Pulse Oximetry 92 L 94 L 94 L 10/17/20 09:30 10/17/20 09:45 10/17/20 10:00 Temperature Pulse Rate 65 77 66 Pulse Rate [Left] Respiratory Rate 15 23 15 Blood Pressure Blood Pressure [Left Arm] O2 Sat by Pulse Oximetry 95 98 98 10/17/20 10:15 10/17/20 10:30 10/17/20 10:45 Temperature Pulse Rate 65 68 73 Pulse Rate [Left] Respiratory Rate 37 H 17 Blood Pressure Blood Pressure [Left Arm] O2 Sat by Pulse Oximetry 98 97 100 10/17/20 11:00 10/17/20 11:15 10/17/20 11:30 Temperature Pulse Rate 82 75 74 Pulse Rate [Left] Respiratory Rate 15 Blood Pressure Blood Pressure [Left Arm] O2 Sat by Pulse Oximetry 100 95 91 L 10/17/20 11:45 10/17/20 12:00 10/17/20 12:01 Temperature 98.3 F Pulse Rate 72 76 Pulse Rate [Left] Respiratory Rate 14 15 Blood Pressure 116/56 Blood Pressure [Left Arm] O2 Sat by Pulse Oximetry 93 L 94 L 10/17/20 12:15 Temperature Pulse Rate 79 Pulse Rate [Left] Respiratory Rate 17 Blood Pressure Blood Pressure [Left Arm] O2 Sat by Pulse Oximetry 91 L Labs: Laboratory Last Values WBC 6.5 X10^3/uL (3.6-10.0) 10/17/20 05:41 RBC 3.38 X10^6/uL (3.5-5.4) L 10/17/20 05:41 Hgb 10.7 g/dL (12.0-16.0) L 10/17/20 05:41 Hct 31.6 % (36.0-47.0) L 10/17/20 05:41 MCV 93.5 fL (80.0-100.0) 10/17/20 05:41 MCH 31.6 pg (27.0-34.0) 10/17/20 05:41 MCHC 33.9 g/dL (33.0-35.0) 10/17/20 05:41 RDW 15.1 % (11.6-16.5) 10/17/20 05:41 Plt Count 132 X10^3/uL (150.0-450.0) L 10/17/20 05:41 MPV 8.3 fL (7.4-11.0) 10/17/20 05:41 Neut % (Auto) 83.7 % (42.0-75.0) H 10/17/20 05:41 Lymph % (Auto) 12.4 % (21.0-51.0) L 10/17/20 05:41 Giles % (Auto) 3.8 % (0.0-13.0) 10/17/20 05:41 Eos % (Auto) 0.0 % (0.9-2.9) L 10/17/20 05:41 Baso % (Auto) 0.1 % (0.2-1.0) L 10/17/20 05:41 Neut # (Auto) 5.4 x10^3/uL (2.2-4.8) H 10/17/20 05:41 Lymph # (Auto) 0.8 X10^3/uL (1.3-2.9) L 10/17/20 05:41 Giles # (Auto) 0.2 x10^3/uL (0.3-0.8) L 10/17/20 05:41 Eos # (Auto) 0.0 x10^3/uL (0.0-0.2) 10/17/20 05:41 Baso # (Auto) 0.0 X10^3/uL (0.0-0.1) 10/17/20 05:41 Absolute Nucleated RBC 0.1 /100WBC 10/17/20 05:41 D-Dimer 0.67 ug/ml (0.0-0.57) H* 10/16/20 03:05 Sample Site Lb 10/15/20 21:29 ABG pH 7.420 (7.35-7.45) 10/15/20 21:29 ABG pCO2 40.0 mmHg (35.0-45.0) 10/15/20 21:29 ABG pO2 50.0 mmHg (80.0-100.0) L 10/15/20 21:29 ABG HCO3 25.9 mmol/L (22-26) 10/15/20 21:29 ABG O2 Saturation 86.0 % (90-100) L 10/15/20 21:29 ABG Base Excess 1.3 mmol/L (-2.0-2.0) 10/15/20 21:29 Ugo Test N/a 10/15/20 21:29 A-a Gradient Not Reportable 10/15/20 21:29 FiO2 21 10/15/20 21:29 Blood Gas Comments Zia well ae 10/15/20 21:29 Sodium 141 mmol/L (136-145) 10/17/20 05:41 Corrected Sodium 142 mmol/L (136-145) 10/17/20 05:41 Potassium 4.0 mmol/L (3.5-5.1) 10/17/20 05:41 Chloride 106 mmol/L (98-107) 10/17/20 05:41 Carbon Dioxide 28.4 mmol/L (21-32) 10/17/20 05:41 BUN 11 mg/dL (7-18) 10/17/20 05:41 Creatinine 0.83 mg/dL (0.55-1.02) 10/17/20 05:41 Est GFR (MDRD) Af Amer > 60 (>60) 10/17/20 05:41 Est GFR (MDRD) Non-Af > 60 (>60) 10/17/20 05:41 Glucose 143 mg/dL (65-99) H 10/17/20 05:41 Calcium 7.9 mg/dL (8.5-10.1) L 10/17/20 05:41 Corrected Calcium 8.4 mg/dL (8.5-10.1) L 10/16/20 03:05 Ferritin 330 ng/mL (8-252) H 10/15/20 20:47 Total Bilirubin 0.30 mg/dL (0.2-1.0) 10/16/20 03:05 AST 56 Units/L (15-37) H 10/16/20 03:05 ALT 54 Units/L (12-78) 10/16/20 03:05 Alkaline Phosphatase 54 Units/L (46-116) 10/16/20 03:05 Creatine Kinase 211 Units/L (26-192) H 10/16/20 03:05 CK-MB (CK-2) 1.4 ng/mL (0-4.0) 10/16/20 03:05 CK/CKMB % Calc 0.7 % (<4) 10/16/20 03:05 Troponin I < 0.02 ng/mL (0-1.5) 10/16/20 03:05 C-Reactive Protein 53.60 mg/L (0-3.0) H 10/15/20 20:47 B-Natriuretic Peptide 13.0 pg/mL (0-79) 10/15/20 20:47 Total Protein 6.0 g/dL (6.4-8.2) L 10/16/20 03:05 Albumin 3.3 g/dL (3.4-5.0) L 10/16/20 03:05 Globulin 2.7 g/dL (2.5-4.5) 10/16/20 03:05 Albumin/Globulin Ratio 1.2 Ratio (1.1-2.1) 10/16/20 03:05 Specimen Type Clean catch urine 10/15/20 23:45 Urine Color Straw (YELLOW) 10/15/20 23:45 Urine Appearance Clear (CLEAR) 10/15/20 23:45 Urine pH 6.0 (5.0 - 8.0) 10/15/20 23:45 Ur Specific [place] 1.010 (1.000-1.030) 10/15/20 23:45 Urine Protein Negative (NEGATIVE) 10/15/20 23:45 Urine Glucose (UA) Negative (NEGATIVE) 10/15/20 23:45 Urine Ketones 1+ (NEGATIVE) 10/15/20 23:45 Urine Occult Blood Negative (NEGATIVE) 10/15/20 23:45 Urine Nitrite Negative (NEGATIVE) 10/15/20 23:45 Urine Bilirubin Negative (NEGATIVE) 10/15/20 23:45 Urine Urobilinogen Normal (NORMAL) 10/15/20 23:45 Ur Leukocyte Esterase Negative (NEGATIVE) 10/15/20 23:45 SARS CoV-2 RNA Rapid KRISTIE Positive (NEGATIVE) A 10/15/20 20:40 Reason For Visit: COVID, HYPOXIA Discharge Diagnosis All Active Problems (Updated 10/16/20 @ 17:44 by Kavita Dejesus) Hypothyroidism (Acute) HTN (hypertension) (Acute) Pneumonia due to COVID-19 virus (Acute) COPD (chronic obstructive pulmonary disease) with acute bronchitis (Acute) COVID-19 (Acute) Hypoxia (Acute) Plan of Treatment: Continue with present treatment and follow up plan. Pt is to keep follow up appointment as instructed and take medications as ordered. Discharge Medications Discharge Medications: No Known Drug Allergies Allergy (Verified 10/15/20 20:14) CONTINUE taking the following medications NK 10/17/20 [History] New Prescriptions albuterol sulfate 1.25 mg NEB QIDRESP 15 Days #180 ml 10/17/20 [Rx] ascorbic acid (vitamin C) 500 mg PO BID 10 Days #20 tab 10/17/20 [Rx] benzonatate 100 mg PO TID 10 Days #30 cap 10/17/20 [Rx] cholecalciferol (vitamin D3) 125 mcg PO DAILY 10 Days #10 tab 10/17/20 [Rx] levofloxacin 750 mg PO DAILY 5 Days #5 tab 10/17/20 [Rx] prednisone See Rx Instructions .ROUTE .COMPLEX #21 ea 10/17/20 [Rx] zinc sulfate 100 mg PO DAILY 10 Days #10 tab 10/17/20 [Rx] Discharge Plan Discharge Plan Patient Disposition: 01 HOME, SELF-CARE Condition: Stable Health Concerns: Post Hospitalization: new medications and changes needed to prevent readmission or further decline. Pt educated and given instructions on all concerns. Plan of Treatment: Continue with present treatment and follow up plan. Pt is to keep follow up appointment as instructed and take medications as ordered. Prescriptions: New albuterol sulfate 1.25 mg/3 mL Solution For Nebulization 1.25 mg NEB QIDRESP 15 Days Qty: 180 RF: 0 benzonatate 100 mg Capsule 100 mg PO TID 10 Days Qty: 30 RF: 0 cholecalciferol (vitamin D3) 125 mcg (5,000 unit) Tablet 125 mcg PO DAILY 10 Days Qty: 10 RF: 0 zinc sulfate 50 mg zinc (220 mg) tablet 100 mg PO DAILY 10 Days Qty: 10 RF: 0 levofloxacin 750 mg tablet 750 mg PO DAILY 5 Days Qty: 5 RF: 0 prednisone 10 mg tablets,dose pack See Rx Instructions .ROUTE .COMPLEX Qty: 21 RF: 0 ascorbic acid (vitamin C) 500 mg tablet 500 mg PO BID 10 Days Qty: 20 RF: 0 No Action NK RF: 0 Follow ups/Referrals Follow ups/Referrals: ANTOINETTE WHITLOCK [Primary Care Provider] - 3 days Instructions Instructions: Chronic Obstructive Pulmonary Disease, Viral Illness, Adult Activity Restrictions/Additional Instructions: call your PCP, isolate yourself per CDC guidlines Stand Alone Forms: Excuse From Work or School, Precautions for COVID19, [facility], Patient Portal, Social Distancing
== END 2020-10-17 14:31 | disposition home or self-care (01) | DRG 177 ==
LOC: ER 19:55 → OBS 10-16 02:14
PROVIDERS: ADMIT Internal Medicine; ATTEND Internal Medicine
DX: J44.9 Chronic obstructive pulmonary disease, unspecified; J12.82 Pneumonia due to coronavirus disease 2019; R79.82 Elevated C-reactive protein (CRP); I10 Essential (primary) hypertension; R79.89 Other specified abnormal findings of blood chemistry; E03.8 Other specified hypothyroidism; U07.1 COVID-19; J44.0 Chronic obstructive pulmonary disease with (acute) lower respiratory infection; R09.02 Hypoxemia; R94.31 Abnormal electrocardiogram [ECG] [EKG]